=== PATIENT | female | born 1955 ===

== ENCOUNTER 2024-01-15 10:42 | Day surgery (SDC) | payer OTHER, MEDICARE ==
[~2024-01-15] VITALS: Ht 157.5 cm; Wt 59.5 kg
[~2024-01-15 10:42] MED LIST: Lactated Ringer's 1,000 ML IV ONE; propofoL 50 ML IV ONE
[2024-01-15] MEDS ORDERED: ESTRADIOL1 EAC2 (10:58)
[2024-01-15] MEDS ORDERED: LEVSOD75 (10:58)
[2024-01-15] MEDS ORDERED: Lactated Ringer's 1,000 ML IV ONE (11:28)
[2024-01-15 12:32] VITALS: BP 122/64
--- NOTE | 2024-01-15 12:32 | NUR ---
01/15/24 1232 Lam Garcia PT STATED HX OF "SLOW TO WAKE" AFTER MEDICATIONS. LESS DROWSY AFTER 15 MINUTES IN SDU. PT STATED, "JUST TIRED".
== END 2024-01-15 12:38 | disposition home or self-care (01) ==
LOC: ORSCSDS 10:42
PROVIDERS: Internal Medicine Gastroenterology
PROC: 0DJD8ZZ Inspection of Lower Intestinal Tract, Via Natural or Artificial Opening Endoscopic (ICD-10-PCS; principal; 2024-01-15 12:00)
DX: Z12.11 Encounter for screening for malignant neoplasm of colon (principal); Z86.010 Personal history of colon polyps
CPT/HCPCS: J2704; J7120